=== PATIENT | male | born 1965 | race Caucasian/White ===

== ENCOUNTER 2020-03-12 09:37 | Inpatient (IN) ==
--- NOTE | 2020-03-12 10:01 | Emergency Department Note ---
Impression & Plan COVID-19, Hypomagnesemia, Hypokalemia, Alcoholic intoxication, Acidosis, lactic, Dehydration ED Provider Note NAME: ANDREW MARY AGE: 54 SEX: M : 1965 ARRIVES VIA: Walk-In INFORMANT: Patient, ED PROVIDER(S): Perry Coronado MD Chief Complaint: Weakness, alcohol use, detox request HPI: Patient does present with the above symptoms. The patient last used alcohol approximately 3 hours ago. Patient states that he has been feeling more worn out. The patient has been drinking heavily for the last year and a half after period of abstinence for 5 years and the patient relates that his mother and girlfriend around the same time. The patient denies any chest pains, shortness of breath nausea or vomiting. Patient states that sometimes he is sick in the morning but after he drinks he feels better. Patient has been feeling warm. The patient does admit to drinking about 1/2 gallon of hard liquor each day. Patient denies taking any at home medications. ROS: See HPI for pertinent positives and negatives. A total of 10 systems were reviewed and otherwise negative. Past medical history: See below Surgical history: See below Social history: See below Physical Exam: GENERAL: Appears older than stated age. NAD, non-toxic. EYE EXAM: Normal conjunctiva. PERRL, no anisocoria and EOM's grossly intact w/o pain. NECK: Supple, no nuchal rigidity, no adenopathy, non-tender. No signs of meningismus. LUNGS: Clear to auscultation. Normal chest wall mechanics. HEART: Tachycardic and regular, no MRG. ABDOMEN: Abdomen soft, non-tender, normo-active bowel sounds, no masses, no rebound or guarding. BACK: No CVA TTP. SKIN: No rashes and no bruising. UPPER EXTREMITIES: Upper extremities are grossly normal. LOWER EXTREMITIES: Grossly normal, no edema. NEURO EXAM: A&O x3, cranial nerves II-XII grossly intact, normal speech, moves all 4 extremities on command w/o issue. Differential diagnoses: Infection, dehydration, metabolic abnormality, hypo/hyperglycemia, electrolyte disturbance, anemia, hypoxia, cardiac sources, intracerebral event, toxicologic, neurologic, as well as other pathologies. Viral syndrome, otitis, pharyngitis, pneumonia, influenza, meningitis, urinary tract infection, sepsis, bacteremia, as well as other pathologies. Course: Patient was seen and evaluated the bedside. Full history physical exam was performed. EKG: Indication: Tachycardia Sinus tachycardia, rate of 112, prolonged QTC, normal axis, slight depressions in the anterior and lateral leads. No prior EKGs for comparison. Imaging Studies: Radiology results as stated below per my review in the radiologist's interpretation: SINGLE VIEW CHEST CLINICAL HISTORY: Sepsis. FINDINGS: An AP, portable, upright chest radiograph is obtained. No prior studies are available for comparison at the time of dictation. The examination is degraded by portable technique and patient rotation. The cardiomediastinal silhouette is unremarkable. The lungs and pleural spaces are clear. No pneumothorax is seen. The bony thorax is grossly intact. IMPRESSION: No acute cardiopulmonary abnormality. ACT 112: Negative or not required by law. Electronically signed by: Tomas Pradhan M.D. 03/12/2020 11:21 AM Dictated: 03/12/201119Transcribed: 03/12/201119 Cardiac monitoring: An order was placed for continuous cardiac monitoring. The monitor shows a rate of 112 with sinus tachycardia rhythm. MDM: Patient was seen due to concern for tachycardia, alcohol use weakness and fever. Blood work was obtained along with blood and urine cultures chest x-ray EKG the patient was ordered IV fluids banana bag B12 and folate levels were also checked. Patient was ordered as needed Ativan as needed for withdrawal. Patient is Covid positive. Patient was ordered dexamethasone given that he is being admitted but the patient currently is not hypoxic. Patient has a normal white count hemoglobin and platelet count. Patient does have anion gap with lower bicarb with elevated lactate which could be related to some starvation ketosis. D5 half with KCl was ordered. The patient does have low magnesium and calcium which may be repleted inpatient. Elevated AST likely consistent with his alcohol abuse. Pro-Wang is elevated urinalysis negative for blood or infection current alcohol level 217. I did speak with on-call hospitalist Dr. Naentte MD. Patient was admitted the medicine service. Past Med/Surg History Medical History Alcohol abuse Tobacco use disorder Surgical History No pertinent past surgical history Social History Smoking Status: Current every day smoker Tobacco Type: Cigarettes Preferred Language: Korean Feels Safe at Home: Yes Allergies Allergies Allergy/AdvReac Type Severity Reaction Status Date / Time No Known Allergies Allergy Unverified 03/12/20 10:34 Home Meds Home Medications Medication Instructions Recorded Confirmed No Known Home Medications 03/12/20 03/12/20 Results & Data (ED) Vital Signs Vital Signs - 24 hr 03/12/20 09:39 03/12/20 11:00 03/12/20 11:50 Temperature 39 C H Temperature Source Oral Pulse Rate 129 H Pulse Rate [Left Finger] Respiratory Rate 20 22 Respiratory Effort / Characteristics Short of Breath Non-Labored Non-Labored Blood Pressure 134/88 Blood Pressure [Left Arm] Blood Pressure Mean 103 Blood Pressure Mean [Left Arm] Pulse Oximetry 92 98 Sepsis Recent Fever Within 48 Hours No Sepsis New/Unexplained Change in Mental Status N/A Sepsis Action Taken by Nursing No Action Required 03/12/20 12:16 03/12/20 13:30 03/12/20 14:31 Temperature Temperature Source Pulse Rate Pulse Rate [Left Finger] 106 H 93 H 98 H Respiratory Rate 22 20 22 Respiratory Effort / Characteristics Blood Pressure Blood Pressure [Left Arm] 127/82 146/94 H 106/79 Blood Pressure Mean Blood Pressure Mean [Left Arm] 97 111 88 Pulse Oximetry 93 96 98 Sepsis Recent Fever Within 48 Hours Sepsis New/Unexplained Change in Mental Status Sepsis Action Taken by Residential Medications Current Medication List: was personally reviewed by me Laboratory Data Attestation: I reviewed the patient's lab results. Result diagrams: 03/12/20 11:28 03/12/20 11:28 Lab Results 03/12/20 03/12/20 03/12/20 Range/Units 11:28 11:28 11:28 WBC 7.61 (4.8-10.8) K/uL RBC 4.18 L (4.7-6.1) M/uL Hgb 14.2 (14.0-18.0) g/dL Hct 41.8 L (42-52) % MCV 100.0 (80-100) fL MCH 34.0 (25-34) pg MCHC 34.0 (32-36) g/dL RDW Std Deviation 46.7 H (36.4-46.3) fL RDW Coeff of Tristan 12.9 (11.5-14.5) % Plt Count 188 (130-400) K/uL MPV 10.2 (7.4-10.4) fL Immature Gran % (Auto) 0.1 % Neut % (Auto) 84.0 % Lymph % (Auto) 9.6 % [place] % (Auto) 6.2 % Eos % (Auto) 0.0 % Baso % (Auto) 0.1 % Neut # (Auto) 6.39 (1.4-6.5) K/uL Lymph # (Auto) 0.73 L (1.2-3.4) K/uL [place] # (Auto) 0.47 (0.11-0.59) K/uL Eos # (Auto) 0.00 (0-0.5) K/uL Baso # (Auto) 0.01 (0-0.2) K/uL Immature Gran # (Auto) 0.01 (0.00-0.02) K/uL PT 11.8 (9.0-12.0) Seconds INR 1.1 (0.9-1.1) APTT 32.2 H (21.0-31.0) Seconds PTT Ratio 1.2 Sodium 136 (136-145) mmol/L Potassium 3.2 L (3.5-5.1) mmol/L Chloride 101 (98-107) mmol/L Carbon Dioxide 20 L (21-32) mmol/L Anion Gap 15.0 H (3-11) BUN 7 (7-18) mg/dl Creatinine 0.68 (0.6-1.4) mg/dl Est Cr Clr Drug Dosing 114.6 ml/min Est GFR ( Amer) 123.7 Est GFR (Non-Af Amer) 106.8 BUN/Creatinine Ratio 10.9 (10-20) Glucose 91 (70-99) mg/dl Lactate (0.4-2.0) mmol/L Calcium 8.4 L (8.5-10.1) mg/dl Magnesium 1.2 L (1.8-2.4) mg/dl Total Bilirubin 0.6 (0.2-1) mg/dl AST 119 H (15-37) U/L ALT 45 (12-78) U/L Alkaline Phosphatase 188 H (45-117) U/L Troponin I < 0.015 (0-0.045) ng/ml Total Protein 7.9 (6.4-8.2) gm/dl Albumin 3.8 (3.4-5.0) gm/dl Globulin 4.1 H (2.5-4.0) gm/dl Albumin/Globulin Ratio 0.9 (0.9-2) Vitamin B12 (193-986) pg/ml Folate (>5.38) ng/ml Procalcitonin (0-0.5) ng/ml Urine Color Urine Appearance (Clear) Urine pH (4.5-7.5) Ur Specific [place] (1.000-1.030) Urine Protein (Negative) Urine Glucose (UA) (Negative) Urine Ketones (Negative) Urine Blood (Negative) Urine Nitrite (Negative) Urine Bilirubin (Negative) Urine Urobilinogen (Negative) Ur Leukocyte Esterase (Negative) Urine RBC (0-4) /hpf Urine WBC (0-5) /hpf Ur Epithelial Cells (0-5) /lpf Urine Bacteria (Negative) Ethyl Alcohol mg/dL (0-3) mg/dl COVID-19 Eval Order COVID-19 PCR (Negative) Influ A Molecular Assay (Negative) Influ B Molecular Assay (Negative) 03/12/20 03/12/20 03/12/20 Range/Units 11:28 11:28 11:28 WBC (4.8-10.8) K/uL RBC (4.7-6.1) M/uL Hgb (14.0-18.0) g/dL Hct (42-52) % MCV (80-100) fL MCH (25-34) pg MCHC (32-36) g/dL RDW Std Deviation (36.4-46.3) fL RDW Coeff of Tristan (11.5-14.5) % Plt Count (130-400) K/uL MPV (7.4-10.4) fL Immature Gran % (Auto) % Neut % (Auto) % Lymph % (Auto) % [place] % (Auto) % Eos % (Auto) % Baso % (Auto) % Neut # (Auto) (1.4-6.5) K/uL Lymph # (Auto) (1.2-3.4) K/uL [place] # (Auto) (0.11-0.59) K/uL Eos # (Auto) (0-0.5) K/uL Baso # (Auto) (0-0.2) K/uL Immature Gran # (Auto) (0.00-0.02) K/uL PT (9.0-12.0) Seconds INR (0.9-1.1) APTT (21.0-31.0) Seconds PTT Ratio Sodium (136-145) mmol/L Potassium (3.5-5.1) mmol/L Chloride (98-107) mmol/L Carbon Dioxide (21-32) mmol/L Anion Gap (3-11) BUN (7-18) mg/dl Creatinine (0.6-1.4) mg/dl Est Cr Clr Drug Dosing ml/min Est GFR ( Amer) Est GFR (Non-Af Amer) BUN/Creatinine Ratio (10-20) Glucose (70-99) mg/dl Lactate 3.1 H* (0.4-2.0) mmol/L Calcium (8.5-10.1) mg/dl Magnesium (1.8-2.4) mg/dl Total Bilirubin (0.2-1) mg/dl AST (15-37) U/L ALT (12-78) U/L Alkaline Phosphatase (45-117) U/L Troponin I (0-0.045) ng/ml Total Protein (6.4-8.2) gm/dl Albumin (3.4-5.0) gm/dl Globulin (2.5-4.0) gm/dl Albumin/Globulin Ratio (0.9-2) Vitamin B12 (193-986) pg/ml Folate (>5.38) ng/ml Procalcitonin 2.36 H (0-0.5) ng/ml Urine Color Urine Appearance (Clear) Urine pH (4.5-7.5) Ur Specific [place] (1.000-1.030) Urine Protein (Negative) Urine Glucose (UA) (Negative) Urine Ketones (Negative) Urine Blood (Negative) Urine Nitrite (Negative) Urine Bilirubin (Negative) Urine Urobilinogen (Negative) Ur Leukocyte Esterase (Negative) Urine RBC (0-4) /hpf Urine WBC (0-5) /hpf Ur Epithelial Cells (0-5) /lpf Urine Bacteria (Negative) Ethyl Alcohol mg/dL (0-3) mg/dl COVID-19 Eval Order COVID-19 PCR (Negative) Influ A Molecular Assay Negative (Negative) Influ B Molecular Assay Negative (Negative) 03/12/20 03/12/20 03/12/20 Range/Units 11:28 11:28 11:32 WBC (4.8-10.8) K/uL RBC (4.7-6.1) M/uL Hgb (14.0-18.0) g/dL Hct (42-52) % MCV (80-100) fL MCH (25-34) pg MCHC (32-36) g/dL RDW Std Deviation (36.4-46.3) fL RDW Coeff of Tristan (11.5-14.5) % Plt Count (130-400) K/uL MPV (7.4-10.4) fL Immature Gran % (Auto) % Neut % (Auto) % Lymph % (Auto) % [place] % (Auto) % Eos % (Auto) % Baso % (Auto) % Neut # (Auto) (1.4-6.5) K/uL Lymph # (Auto) (1.2-3.4) K/uL [place] # (Auto) (0.11-0.59) K/uL Eos # (Auto) (0-0.5) K/uL Baso # (Auto) (0-0.2) K/uL Immature Gran # (Auto) (0.00-0.02) K/uL PT (9.0-12.0) Seconds INR (0.9-1.1) APTT (21.0-31.0) Seconds PTT Ratio Sodium (136-145) mmol/L Potassium (3.5-5.1) mmol/L Chloride (98-107) mmol/L Carbon Dioxide (21-32) mmol/L Anion Gap (3-11) BUN (7-18) mg/dl Creatinine (0.6-1.4) mg/dl Est Cr Clr Drug Dosing ml/min Est GFR ( Amer) Est GFR (Non-Af Amer) BUN/Creatinine Ratio (10-20) Glucose (70-99) mg/dl Lactate (0.4-2.0) mmol/L Calcium (8.5-10.1) mg/dl Magnesium (1.8-2.4) mg/dl Total Bilirubin (0.2-1) mg/dl AST (15-37) U/L ALT (12-78) U/L Alkaline Phosphatase (45-117) U/L Troponin I (0-0.045) ng/ml Total Protein (6.4-8.2) gm/dl Albumin (3.4-5.0) gm/dl Globulin (2.5-4.0) gm/dl Albumin/Globulin Ratio (0.9-2) Vitamin B12 1436 H (193-986) pg/ml Folate 5.40 (>5.38) ng/ml Procalcitonin (0-0.5) ng/ml Urine Color Urine Appearance (Clear) Urine pH (4.5-7.5) Ur Specific [place] (1.000-1.030) Urine Protein (Negative) Urine Glucose (UA) (Negative) Urine Ketones (Negative) Urine Blood (Negative) Urine Nitrite (Negative) Urine Bilirubin (Negative) Urine Urobilinogen (Negative) Ur Leukocyte Esterase (Negative) Urine RBC (0-4) /hpf Urine WBC (0-5) /hpf Ur Epithelial Cells (0-5) /lpf Urine Bacteria (Negative) Ethyl Alcohol mg/dL (0-3) mg/dl COVID-19 Eval Order Covid19 Done at [facility] COVID-19 PCR POSITIVE A* (Negative) Influ A Molecular Assay (Negative) Influ B Molecular Assay (Negative) 03/12/20 03/12/20 03/12/20 Range/Units 12:13 13:02 13:28 WBC (4.8-10.8) K/uL RBC (4.7-6.1) M/uL Hgb (14.0-18.0) g/dL Hct (42-52) % MCV (80-100) fL MCH (25-34) pg MCHC (32-36) g/dL RDW Std Deviation (36.4-46.3) fL RDW Coeff of Tristan (11.5-14.5) % Plt Count (130-400) K/uL MPV (7.4-10.4) fL Immature Gran % (Auto) % Neut % (Auto) % Lymph % (Auto) % [place] % (Auto) % Eos % (Auto) % Baso % (Auto) % Neut # (Auto) (1.4-6.5) K/uL Lymph # (Auto) (1.2-3.4) K/uL [place] # (Auto) (0.11-0.59) K/uL Eos # (Auto) (0-0.5) K/uL Baso # (Auto) (0-0.2) K/uL Immature Gran # (Auto) (0.00-0.02) K/uL PT (9.0-12.0) Seconds INR (0.9-1.1) APTT (21.0-31.0) Seconds PTT Ratio Sodium (136-145) mmol/L Potassium (3.5-5.1) mmol/L Chloride (98-107) mmol/L Carbon Dioxide (21-32) mmol/L Anion Gap (3-11) BUN (7-18) mg/dl Creatinine (0.6-1.4) mg/dl Est Cr Clr Drug Dosing ml/min Est GFR ( Amer) Est GFR (Non-Af Amer) BUN/Creatinine Ratio (10-20) Glucose (70-99) mg/dl Lactate 3.4 H* (0.4-2.0) mmol/L Calcium (8.5-10.1) mg/dl Magnesium (1.8-2.4) mg/dl Total Bilirubin (0.2-1) mg/dl AST (15-37) U/L ALT (12-78) U/L Alkaline Phosphatase (45-117) U/L Troponin I (0-0.045) ng/ml Total Protein (6.4-8.2) gm/dl Albumin (3.4-5.0) gm/dl Globulin (2.5-4.0) gm/dl Albumin/Globulin Ratio (0.9-2) Vitamin B12 (193-986) pg/ml Folate (>5.38) ng/ml Procalcitonin (0-0.5) ng/ml Urine Color Colorless Urine Appearance Clear (Clear) Urine pH 7.5 (4.5-7.5) Ur Specific [place] 1.005 (1.000-1.030) Urine Protein Negative (Negative) Urine Glucose (UA) Negative (Negative) Urine Ketones Negative (Negative) Urine Blood Negative (Negative) Urine Nitrite Negative (Negative) Urine Bilirubin Negative (Negative) Urine Urobilinogen Negative (Negative) Ur Leukocyte Esterase Negative (Negative) Urine RBC 0-4 (0-4) /hpf Urine WBC 0-5 (0-5) /hpf Ur Epithelial Cells 0-5 (0-5) /lpf Urine Bacteria Negative (Negative) Ethyl Alcohol mg/dL 217.7 H (0-3) mg/dl COVID-19 Eval Order COVID-19 PCR (Negative) Influ A Molecular Assay (Negative) Influ B Molecular Assay (Negative) Administered Medications Lorazepam (Ativan) 2 mg in 4 mls @ 4 mls/min IV UD PRN; Protocol PRN Reason: EtOH Withdrawl AWSS Score 8,9 Stop: 04/11/20 10:26 Last Admin: 03/12/20 11:22 Dose: 4 mls/min Documented by: [id number] Potassium Chloride 40 meq/ (Dextrose/Sodium Chloride) 1,000 ml in 1,020 mls @ 250 mls/hr IV .Q4H5M ALBA Stop: 04/11/20 12:44 Last Admin: 03/12/20 13:08 Dose: 250 mls/hr Documented by: [id number] Discontinued Medications Dexamethasone (Dexamethasone Sod Inj 10 Mg/Ml Vial) 6 mg IV NOW ONE Stop: 03/12/20 12:31 Last Admin: 03/12/20 13:08 Dose: 6 mg Documented by: [id number] Multivitamins 10 ml/ Thiamine HCl 100 mg/ Folic Acid 1 mg/Sodium Chloride 1,011.2 mls @ 1,011.2 mls/hr IV .Q1H ONE Stop: 03/12/20 11:26 Last Infusion: 03/12/20 12:33 Dose: 0 mls/hr Documented by: [id number] Admin: 03/12/20 11:21 Dose: 1,011.2 mls/hr Documented by: [id number] Ketorolac Tromethamine (Ketorolac 30 Mg/Ml Vial) 30 mg IV NOW STA Stop: 03/12/20 10:28 Last Admin: 03/12/20 11:21 Dose: 30 mg Documented by: [id number] Magnesium Sulfate/Dextrose (Magnesium Sulfate 1gm / D5w Bag) Confirm Administered Dose 1 gm IV .STK-MED ONE Stop: 03/12/20 12:54 Last Admin: 03/12/20 13:08 Dose: 1 gm Documented by: [id number] Discharge Plan Visit Data Chief Complaint: Detox Request Stated Complaint: ETOH ED Provider: Perry Coronado Discharge Problem: COVID-19, Hypomagnesemia, Hypokalemia, Alcoholic intoxication, Acidosis, lactic, Dehydration Forms Stand Alone Forms: [facility], Suicide Prevention Resources Prescriptions Prescriptions: No Action No Known Home Medications RF: 0 Discharge Problem: Alcoholic intoxication Qualifiers: Complication of substance-induced condition: uncomplicated Qualified Code(s): F10.920 - Alcohol use, unspecified with intoxication, uncomplicated
[2020-03-12] MEDS ORDERED: LORazepam 3 MG/6 ML VIAL IV PRN (10:27)
[2020-03-12] MEDS ORDERED: MULTI-VITAMIN INFUSION 10 ML, THIAMINE HCL 100 MG, FOLIC ACID 1 MG in SODIUM CHLORIDE 0... IV ONE (10:27)
[2020-03-12] MEDS ORDERED: ATIVAN IV ALCOHOL WITHDRAWL IV PRN (10:27)
[2020-03-12] MEDS ORDERED: LORazepam 1 MG/2 ML VIAL IV PRN (10:27)
[2020-03-12] MEDS ORDERED: KETOROLAC 30 MG/ML VIAL IV STA (10:27)
[2020-03-12] MEDS ORDERED: LORazepam 2 MG/4 ML VIAL IV PRN (10:27)
--- NOTE | 2020-03-12 11:22 | XRay Report ---
SINGLE VIEW CHEST CLINICAL HISTORY: Sepsis. FINDINGS: An AP, portable, upright chest radiograph is obtained. No prior studies are available for c omparison at the time of dictation. The examination is degraded by portable technique and patient rot ation. The cardiomediastinal silhouette is unremarkable. The lungs and pleural spaces are clear. No pneumothorax is seen. The bony thorax is grossly intact. IMPRESSION: No acute cardiopulmonary abnormality. ACT 112: Negative or not required by law. Electronically signed by: Tomas Pradhan M.D. 03/12/2020 11:21 AM
[2020-03-12 11:47] LABS: Basophils # (auto) 0.01 K/uL (0-0.2); Basophils % (auto) 0.1 %; Hematocrit (blood only) 41.8 % (42-52); Hemoglobin 14.2 g/dL (14.0-18.0); Immature Granulocytes # (auto) 0.01 K/uL (0.00-0.02); Immature Granulocytes % (auto) 0.1 %; Lymphocytes # (auto) 0.73 K/uL (1.2-3.4); Lymphocytes % (auto) 9.6 %; Mean Platelet Volume 10.2 fL (7.4-10.4); Monocytes # (auto) 0.47 K/uL (0.11-0.59); Monocytes % (auto) 6.2 %; Neutrophils # (auto) 6.39 K/uL (1.4-6.5); Platelet Count 188 K/uL (130-400); RDW Coefficient of Variation 12.9 % (11.5-14.5); RDW Standard Deviation 46.7 fL (36.4-46.3); Red Blood Count 4.18 M/uL (4.7-6.1); White Blood Count 7.61 K/uL (4.8-10.8)
[2020-03-12 11:58] LABS: INR 1.1 (0.9-1.1); Partial Thromboplastin Ratio 1.2; Partial Thromboplastin Time 32.2 Seconds (21.0-31.0); Prothrombin Time 11.8 Seconds (9.0-12.0)
[2020-03-12 12:05] LABS: Alanine Aminotransferase 45 U/L (12-78); Albumin Level 3.8 gm/dl (3.4-5.0); Aspartate Aminotransferase 119 U/L (15-37); BUN Creatinine Ratio 10.9 (10-20); Blood Urea Nitrogen 7 mg/dl (7-18); Calcium 8.4 mg/dl (8.5-10.1); Carbon Dioxide 20 mmol/L (21-32); Chloride 101 mmol/L (98-107); Creatinine Clr Calc Pharmacy 114.6 ml/min; Est GFR (African American) 123.7; Est GFR (Non-African American) 106.8; Glucose 91 mg/dl (70-99); Magnesium 1.2 mg/dl (1.8-2.4); Potassium 3.2 mmol/L (3.5-5.1); Sodium 136 mmol/L (136-145)
[2020-03-12 12:09] LABS: Influenza A virus by PCR Negative (Negative); Influenza B virus by PCR Negative (Negative)
[2020-03-12 12:10] LABS: Albumin Globulin Ratio 0.9 (0.9-2); Alkaline Phosphatase 188 U/L (45-117); Bilirubin,Total 0.6 mg/dl (0.2-1); Globulin 4.1 gm/dl (2.5-4.0); Total Protein 7.9 gm/dl (6.4-8.2); Troponin I < 0.015 ng/ml (0-0.045)
[2020-03-12 12:19] LABS: Folate (Folic Acid) 5.4 ng/ml (>5.38)
[2020-03-12 12:26] LABS: Bilirubin Urine Negative (Negative); Blood Urine Negative (Negative); Glucose Urine UA Negative (Negative); Ketones Urine Negative (Negative); Leukocyte Esterase Urine Negative (Negative); Nitrite Urine Negative (Negative); Protein Urine Negative (Negative); Specific Gravity Urine 1.005 (1.000-1.030); Urobilinogen Urine Negative (Negative); pH Urine 7.5 (4.5-7.5)
[2020-03-12] MEDS ORDERED: DEXAMETHASONE SOD INJ 10 MG/ML VIAL IV ONE (12:30)
--- NOTE | 2020-03-12 12:40 | History & Physical Report ---
Date of Service March 12, 2020 Assessment & Plan (1) Alcohol withdrawal: Admit to med/telemetry due to electrolyte abnormalities and metabolic acidosis with elevated anion gap in setting of alcohol withdrawal. Lorazepam 1 to 3 mg as needed for AWSS If electrolytes normal tomorrow and still on room air likely he can continue treatment at home. Thiamine 100 mg p.o. daily. (2) Fever: Suspect secondary to SARS-CoV-2. UA, WBC, chest x-ray, history not suggestive of bacterial infection. Discontinue further antibiotics. (3) Severe acute respiratory syndrome coronavirus 2 (SARS-CoV-2) detected: Given no hypoxia or chest x-ray findings no further dexamethasone warranted. Isolation airborne and contact precautions (4) Hypomagnesemia: MG level 1.2. Mag sulfate 1 g IV given in ER. Start Mag-Ox 400 mg p.o. twice daily. (5) Elevated aspartate aminotransferase level: Suspect elevated in the setting of alcohol use. Repeat with AM labs. (6) Metabolic acidosis, increased anion gap: Suspect secondary to lactate and ketones with a relatively starved state. D5W + KCl 40 meq 1L Repeat CMP with AM labs (7) Hypokalemia: K Cl in IV fluids as above. Repeat with AM labs (8) Tobacco use disorder: Nicotine patch 14 mgg transdermal daily. (9) DVT prophylaxis: Low risk. No chemical DVT prophylaxis or SCDs indicated. Admission and Anticipated Discharge Date Admission Date: 03/12/2020 History of Present Illness Chief Complaint: Requesting detox Primary Care Provider: NO PCP Donnell Bolivar is a 54-year-old male who presents to the ER requesting detox. However in the ER he also had a fever of 39 C and subsequently SARS-CoV-2 nasopharyngeal swab positive. He reports having a cough due to smoking but is no worse than usual. He denies any shortness of breath, fever (other than in the ER currently), abdominal pain, diarrhea, loss of taste or smell, myalgias, headache, sore throat, nausea or vomiting. With regards to his alcohol he drinks approximately half a gallon of whiskey a day for the last 1.5 years. He had a period of abstinence for 5 years prior to this but went back to alcohol after his mother and girlfriend around the same time. He denies any history of alcohol withdrawal seizures. His last alcohol withdrawal was approximately 6 years ago which was done in a hospital setting. He reports going home after this and having no cravings. He does not have a primary care provider although reports no past medical history and is on no current medications. No significant surgical history. In the ER he was prescribed dexamethasone due to the COVID-19 diagnosis although has been saturating well on room air and chest x-ray unremarkable. He was referred to medicine due to tachycardia, Covid, alcohol. Allergies Allergy/AdvReac Type Severity Reaction Status Date / Time No Known Allergies Allergy Unverified 03/12/20 10:34 Home Medications Home Medications Medication Instructions Recorded Confirmed Type No Known Home Medications 03/12/20 03/12/20 History Past Med/Surg History Medical History Alcohol abuse Tobacco use disorder Surgical History No pertinent past surgical history Social History Smoking Status: Current every day smoker Tobacco Type: Cigarettes Preferred Language: [place] Feels Safe at Home: Yes Review of Systems Review of Systems: All systems reviewed & are unremarkable except as noted in HPI & below Respiratory: + cough (No worse than usual) Physical Exam Constitutional: well developed and + disheveled; + not well nourished and no acute distress Eyes: PERRL, conjunctivae normal, anicteric sclerae ENMT: external ear and nose normal, oropharynx normal Neck: trachea midline, no thyromegaly Respiratory: normal respiratory effort, lungs clear to auscultation + cough Cardiovascular: Rate/Rhythm: regular rhythm and + tachycardic Heart Sounds: no murmur Vessels: no JVD Extremities: normal capillary refill; no calf tenderness and no pedal edema Gastrointestinal (Abdomen): normal bowel sounds, soft, nontender, no he patosplenomegaly Musculoskeletal: no cyanosis or clubbing, extremities motor strength 5/5 Skin: no rashes, warm and dry Neurologic: moves all extremities and awake; no focal motor deficits and not confused Psychiatric: A+Ox3, euthymic affect Genitourinary: no CVA tenderness Results & Data Results & Data ([facility]) Vital Signs (Past 12 Hours) Vital Signs Temp Pulse Pulse Resp BP BP Pulse Ox 11/11/20 12:16 106 H 22 127/82 93 03/12/20 11:00 22 98 03/12/20 09:39 39 C H 129 H 20 134/88 92 Diagnostic Findings SINGLE VIEW CHEST IMPRESSION: No acute cardiopulmonary abnormality. Medications Administered ER medications given: Toradol 30 mg IV Dexamethasone 6 mg IV Banana bag D5W + KCl 40meq @ 250ml/hr ECG Indication: chest pain Rate (beats per minute): 112 Findings: + ST depression (V3/V4); no acute ischemic change Comparison ECG Date: no prior available Code Status & VTE Plan Code Status Full VTE Prophylaxis Plan VTE Prophylaxis will be ordered: No Reason for no VTE drug order: Treatment not indicated Reason for no VTE mechanical prophylaxis: Treatment not indicated PG Care Time/CCT Total # of Minutes Spent Total Time Spent with Patient: Total time spent is greater than 50% in coordination of care (as documented) at patient's floor/unit and/or counseling patient: Coding Level of Care Code 74256 Initial Inpt Care Lvl 3 Diagnoses Alcohol withdrawal F10.239 Fever R50.9 Severe acute respiratory syndrome coronavirus 2 (SARS-CoV-2) detected U07.1 Hypomagnesemia E83.42 Elevated aspartate aminotransferase level R74.01 Metabolic acidosis, increased anion gap E87.2 Hypokalemia E87.6 Tobacco use disorder F17.200 DVT prophylaxis Z29.9
[2020-03-12] MEDS ORDERED: MAGNESIUM SULFATE / D5W 1 GM/100 ML BAG IV STA (12:42)
[2020-03-12 12:45] LABS: Appearance Urine Clear (Clear); Color Urine Colorless
[2020-03-12] MEDS ORDERED: MAGNESIUM SULFATE 1GM / D5W BAG IV ONE (12:53)
[2020-03-12] MEDS: POTASSIUM CHLORIDE 40 MEQ in D5W AND 1/2NSS 1,000 ML/1,000 ML BAG IV SCH ×2 (13:08→20:57)
[2020-03-12 14:19] LABS: Bacteria Urine Negative (Negative); Epithelial Cell Urine 0-5 /lpf (0-5); RBC Urine 0-4 /hpf (0-4); WBC Urine 0-5 /hpf (0-5)
[2020-03-12] MEDS ORDERED: ALUMINUM/MAGNESIUM SUSP 30 ML UDC PO PRN (19:42)
[2020-03-12] MEDS ORDERED: POLYETHYLENE (MIRALAX) 17 GM PACK PO PRN (19:42)
[2020-03-12] MEDS ORDERED: ACETAMINOPHEN 325 MG TAB PO PRN (19:42)
[2020-03-12] MEDS ORDERED: ONDANSETRON INJ 2 MG/ML 2 ML VIAL IV PRN (19:42)
[2020-03-12] MEDS: NICOTINE 14 MG/24 HR PATCH TD SCH (20:58)
[2020-03-12] MEDS: MAGNESIUM OXIDE 400 MG TAB PO SCH (21:00)
[2020-03-12] MEDS: THIAMINE HCL 100 MG TAB PO SCH (21:00)
[2020-03-12] MEDS: LORazepam 1 MG TAB PO PRN (21:01)
[2020-03-12] MEDS ORDERED: Nursing to Pharmacy Communication SCH (21:30)
[2020-03-13] MEDS: LORazepam 1 MG TAB PO PRN ×3 (00:02→06:11)
[2020-03-13] MEDS: POTASSIUM CHLORIDE 40 MEQ in D5W AND 1/2NSS 1,000 ML/1,000 ML BAG IV SCH ×3 (01:13→11:33)
[2020-03-13] MEDS ORDERED: cloNIDine HCL 0.1 MG TAB PO ONE (05:49)
[2020-03-13 08:00] LABS: Basophils # (auto) 0.01 K/uL (0-0.2); Basophils % (auto) 0.1 %; Hematocrit (blood only) 41.1 % (42-52); Hemoglobin 13.6 g/dL (14.0-18.0); Immature Granulocytes # (auto) 0.05 K/uL (0.00-0.02); Immature Granulocytes % (auto) 0.4 %; Lymphocytes # (auto) 1.72 K/uL (1.2-3.4); Lymphocytes % (auto) 13.6 %; Mean Corpuscular Hemoglobin 33.5 pg (25-34); Mean Corpuscular Hgb Conc 33.1 g/dL (32-36); Mean Corpuscular Volume 101.2 fL (80-100); Mean Platelet Volume 10.7 fL (7.4-10.4); Monocytes # (auto) 0.62 K/uL (0.11-0.59); Monocytes % (auto) 4.9 %; Neutrophils # (auto) 10.23 K/uL (1.4-6.5); Platelet Count 182 K/uL (130-400); RDW Coefficient of Variation 12.9 % (11.5-14.5); RDW Standard Deviation 47.6 fL (36.4-46.3); Red Blood Count 4.06 M/uL (4.7-6.1); White Blood Count 12.63 K/uL (4.8-10.8)
[2020-03-13 08:26] LABS: Albumin Level 3.3 gm/dl (3.4-5.0); BUN Creatinine Ratio 9.4 (10-20); Calcium 8.7 mg/dl (8.5-10.1); Creatinine Clr Calc Pharmacy 112.3 ml/min; Est GFR (African American) 125.3; Est GFR (Non-African American) 108.1; Potassium 3.5 mmol/L (3.5-5.1)
[2020-03-13 08:29] LABS: Albumin Globulin Ratio 0.8 (0.9-2); Bilirubin,Total 0.7 mg/dl (0.2-1); Globulin 4.3 gm/dl (2.5-4.0); Total Protein 7.6 gm/dl (6.4-8.2)
[2020-03-13] MEDS: NICOTINE 14 MG/24 HR PATCH TD SCH (08:58)
[2020-03-13] MEDS: MAGNESIUM OXIDE 400 MG TAB PO SCH (08:58)
[2020-03-13] MEDS: THIAMINE HCL 100 MG TAB PO SCH (08:58)
--- NOTE | 2020-03-13 09:01 | Electrocardiogram Report ---
Test Reason : Blood Pressure : / mmHG Vent. Rate : 112 BPM Atrial Rate : 112 BPM P-R Int : 156 ms QRS Dur : 086 ms QT Int : 378 ms P-R-T Axes : 064 052 105 degrees QTc Int : 515 ms Sinus tachycardia Cannot rule out Inferior infarct , age undetermined ST depression in Lateral leads Abnormal ECG No previous ECGs available Confirmed by Lalo Laguna ([id number]) on 03/13/2020 9:01:17 AM Referred By: Confirmed By:Lalo Laguna
[2020-03-13] MEDS ORDERED: MAGNESIUM SULFATE / D5W 1 GM/100 ML BAG IV ONE (09:15)
--- NOTE | 2020-03-13 11:43 | Discharge Summary ---
Date of Service March 13, 2020 Admission HPI Per Admitting Provider Donnell Bolivar is a 54-year-old male who presents to the ER requesting detox. However in the ER he also had a fever of 39 C and subsequently SARS-CoV-2 nasopharyngeal swab positive. He reports having a cough due to smoking but is no worse than usual. He denies any shortness of breath, fever (other than in the ER currently), abdominal pain, diarrhea, loss of taste or smell, myalgias, headache, sore throat, nausea or vomiting. With regards to his alcohol he drinks approximately half a gallon of whiskey a day for the last 1.5 years. He had a period of abstinence for 5 years prior to this but went back to alcohol after his mother and girlfriend around the same time. He denies any history of alcohol withdrawal seizures. His last alcohol withdrawal was approximately 6 years ago which was done in a hospital setting. He reports going home after this and having no cravings. He does not have a primary care provider although reports no past medical history and is on no current medications. No significant surgical history. In the ER he was prescribed dexamethasone due to the COVID-19 diagnosis although has been saturating well on room air and chest x-ray unremarkable. He was referred to medicine due to tachycardia, Covid, alcohol. Principal Diagnosis Alcohol withdrawal Discharge Exam Constitutional WD/WN, vitals as above Neck trachea midline, no thyromegaly Respiratory normal respiratory effort, lungs clear to auscultation Cardiovascular RRR, no murmur, no edema Gastrointestinal (Abdomen) normal bowel sounds, soft, nontender, no hepatosplenomegaly Musculoskeletal no cyanosis or clubbing, extremities motor strength 5/5 Skin no rashes, warm and dry Neurologic patellar DTR's 2+ bilat, sensation intact and PERRL, EOMI, accommodation nl, no face palsy, no dysarthria Motor/Sensory: no tremor Psychiatric Orientation: alert and oriented x 3 Affect: + anxious affect Lymphatic no cervical or axillary lymphadenopathy Discharge Data Allergies Allergy/AdvReac Type Severity Reaction Status Date / Time No Known Allergies Allergy Unverified 03/12/20 10:34 Consultations 03/12/20 12:42 ED Decision to Admit Stat Hospital Course (1) Alcohol withdrawal: admitted to [facility], no acute issues doing well this morning, eating and drinking, no tremors, no needs for excessive ativan will discharge home on Gabapentin for abreviated taper to help with symptoms prescribe short course of Ativan to use q12 PRN for withdrawal symptoms he says he lives with his brother who does not drink, he can offer him support to stay sober recommended that he remain in quarantine for next 7-10 days should reach out for community resources once he can leave his home (2) Fever: du to SARS-CoV-2. UA, WBC, chest x-ray, history not suggestive of bacterial infection afebrile on day of discharge (3) Severe acute respiratory syndrome coronavirus 2 (SARS-CoV-2) detected: Given no hypoxia or chest x-ray findings no further dexamethasone warranted. Isolation airborne and contact precautions he should remain in quarantine on discharge, instructions given (4) Hypomagnesemia: MG level 1.2. resolved with IV and PO replacement (5) Elevated aspartate aminotransferase level: Suspect elevated in the setting of alcohol use. chronic issue will resolve if he stays sober (6) Metabolic acidosis, increased anion gap: Suspect secondary to lactate and ketones with a relatively starved state. D5W + KCl 40 meq 1L HCO3 coming up on discharge (7) Hypokalemia: resolved (8) Tobacco use disorder: Nicotine patch 14 mgg transdermal daily. (9) DVT prophylaxis: Low risk. No chemical DVT prophylaxis or SCDs indicated. Total Time Total Time Spent Total Time Spent (In Minutes): 33 minutes Total Time Includes: Examination of the Patient, Discharge Planning and Medication Reconciliation Discharge Plan Discharge Items Patient Disposition: Home - Self-Care Reason For Visit: ALCOHOL WITHDRAWAL,COVID-19 + Discharge Diagnosis: Alcohol withdrawal Hypokalemia Hypomagnesemia COVID 19 infection Condition on Discharge: Good Goals: complete alcohol withdrawal, stay sober quarantine for 10 days Activity: Resume your previous activity Driving/Machine Use: no driving while taking Ativan Weightbearing: Full weightbearing Non-emergency contact: Primary Care Provider Call non-emergency contact if: you have any medication questions and your symptoms worsen Follow-up/Referrals: PCP,NO [Primary Care Provider] - Diet: Regular Addtl Attending Provider Instructions: Medications: - GABAPENTIN: 600mg twice a day for two days then 600mg every morning for 2 days then stop this can help reduce alcohol withdrawal symptoms - ATIVAN: 0.5mg every 8 hours as needed for withdrawal symptoms Alcohol withdrawal: adequately hydrated with IV fluids, electrolytes repleted no serious signs of withdrawal recommend the Gabapentin and Ativan as above rely on family support you need to quarantine for 10 days due to COVID 19 result but can then go to AA meetings or support groups after that time if you desire COVID 19 positive no hypoxia, normal chest x-ray, unclear how long you have had COVID since you don't have any symptoms recommend you quarantine for 10 days recommend your brother get tested and quarantine until his test results, high likelihood that he is positive since you live with him no need to be hospitalized unless you develop hypoxia which is oxygen saturations less than 88% return to the ED if you develop severe shortness of breath Pending Studies at Discharge: No Stand-Alone Forms: My [facility] Mad Mimi, Smoking Cessation Medications and DC Order Prescriptions: New lorazepam [Ativan] 0.5 mg tablet 0.5 mg PO Q8H PRN (Reason: alcohol withdrawal) Qty: 15 RF: 0 No Action No Known Home Medications RF: 0 Discharge Orders: Discharge Order (Routine); Ordered 03/13/20 Ordered By: King Mcneil Admission Data Admit Date/Time: 03/12/20 13:35 Attending Provider: King Mcneil Admit Provider: Ilir Fitzpatrick Primary Care Provider: PCP,NO Other Providers: Ilir Fitzpatrick Other Interventions: Discharge Summary Assessment (RN) Last Done: 03/13/20 11:52 Coding Level of Care Code D/C Day Management >30 mins Diagnoses Alcohol withdrawal F10.239 Fever R50.9 Severe acute respiratory syndrome coronavirus 2 (SARS-CoV-2) detected U07.1 Hypomagnesemia E83.42 Elevated aspartate aminotransferase level R74.01 Metabolic acidosis, increased anion gap E87.2 Hypokalemia E87.6 Tobacco use disorder F17.200 DVT prophylaxis Z29.9
[2020-03-13 12:05] VITALS: BP 166/94; PULSE 93; TEMP 98.2; O2SAT 95
== END 2020-03-13 14:10 | disposition home or self-care (01) | DRG 896 ==
LOC: ED 09:37 → 2N 13:35 → SUATTDRO 13:35 → 2N 19:00 → 2W 03-13 00:50